=== PATIENT | female | born 1995 | race Caucasian/White ===

== ENCOUNTER 2019-10-21 19:57 | Emergency (ER) | payer MEDICAID ==
--- NOTE | 2019-10-21 21:16 | NUR ---
Per section crews activities clerk, pt LWBS.
== END 2019-10-21 21:16 | disposition left against medical advice (07) ==
LOC: SED 19:57
DX: R06.02 Shortness of breath (principal); Z53.21 Procedure and treatment not carried out due to patient leaving prior to being seen by health care provider

== ENCOUNTER 2023-06-01 15:47 | Emergency (ER) | payer MEDICAID ==
[~2023-06-01] VITALS: Ht 172.7 cm; Wt 83.9 kg
[2023-06-01 15:52] VITALS: BP_SYST 113; PULSE 89; RESP 18; TEMP 98.3; O2SAT 96
[2023-06-01 16:53] LABS: BASOPHILS # (AUTO) 0.1 K/uL (0.0-0.2); BASOPHILS % (AUTO) 0.7 % (0.0-2.0); EOSINOPHILS # (AUTO) 0.1 K/uL (0.0-0.4); EOSINOPHILS % (AUTO) 1.1 % (0.0-4.0); HEMATOCRIT 38.3 % (36-48); HEMOGLOBIN 12.7 g/dL (12.0-16.0); LYMPHOCYTES % (AUTO) 22.5 % (20.5-51.5); MEAN CORPUSCULAR HEMOGLOBIN 29 pg (27-31); MEAN CORPUSCULAR HGB CONC 33 % (32-36); MEAN CORPUSCULAR VOLUME 89 fL (79.0-98.0); MONOCYTES # (AUTO) 0.7 K/uL (0.0-1.0); MONOCYTES % (AUTO) 7.6 % (1.7-9.3); NEUTROPHILS # (AUTO) 5.9 K/uL (1.8-7.7); NEUTROPHILS % (AUTO) 68.1 % (40.0-70.0); PLATELET COUNT (AUTO) 348 K/uL (130-430); RED CELL DISTRIBUTION WIDTH 13.1 % (9.0-15.0); WHITE BLOOD COUNT (AUTO) 8.7 K/uL (4.8-10.8)
[2023-06-01 19:27] VITALS: BP_SYST 113; PULSE 89; RESP 18; TEMP 98.3; O2SAT 96
== END 2023-06-01 19:27 | disposition home or self-care (01) ==
LOC: SED 15:47
DX: O20.0 Threatened abortion (principal); Z3A.08 8 weeks gestation of pregnancy; Z79.899 Other long term (current) drug therapy
CPT/HCPCS: 36415; 76801; 76817; 81025; 84702; 85025; 86900; 86901; 99284

== ENCOUNTER 2023-06-29 01:04 | Emergency (ER) | payer MEDICAID ==
[~2023-06-29] VITALS: Ht 172.7 cm; Wt 82.6 kg
[2023-06-29 01:10] VITALS: BP_SYST 113; PULSE 77; RESP 20; TEMP 98.2; O2SAT 98
--- NOTE | 2023-06-29 01:10 | NUR ---
Patient triaged and placed in waiting room. VSS and patient appears in no acute distress at this time. Accompanied by SELF, awaiting available bed, and MD notified of need for MSE.
--- NOTE | 2023-06-29 01:50 | NUR ---
Patient ambulated to room 7 & connected to CM.
--- NOTE | 2023-06-29 01:58 | NUR ---
Supervisor Housecleaner at bedside. Blood obtained and specimens sent to lab.
--- NOTE | 2023-06-29 02:00 | NUR ---
Patient to ER bed 07 to gown for evaluation. Side rails up. Report given to DERRICK MELGAR.
[2023-06-29 02:04] LABS: BASOPHILS % (AUTO) 0.5 % (0.0-2.0); EOSINOPHILS # (AUTO) 0.1 K/uL (0.0-0.4); EOSINOPHILS % (AUTO) 1.1 % (0.0-4.0); HEMATOCRIT 37.3 % (36-48); HEMOGLOBIN 12.5 g/dL (12.0-16.0); LYMPHOCYTES # (AUTO) 2.3 K/uL (1.0-5.5); LYMPHOCYTES % (AUTO) 25.4 % (20.5-51.5); MEAN CORPUSCULAR HEMOGLOBIN 30 pg (27-31); MEAN CORPUSCULAR HGB CONC 34 % (32-36); MEAN CORPUSCULAR VOLUME 89 fL (79.0-98.0); MONOCYTES # (AUTO) 0.6 K/uL (0.0-1.0); MONOCYTES % (AUTO) 6.8 % (1.7-9.3); NEUTROPHILS % (AUTO) 66.2 % (40.0-70.0); PLATELET COUNT (AUTO) 359 K/uL (130-430); RED BLOOD CELL COUNT(AUTO) 4.19 MIL/uL (4.2-6.2); RED CELL DISTRIBUTION WIDTH 13.9 % (9.0-15.0)
--- NOTE | 2023-06-29 02:10 | NUR ---
Dr. Nye at bedside for evaluation.
[2023-06-29 02:25] LABS: ALBUMIN 3.5 g/dL (3.4-4.8); CALCIUM 8.4 mg/dL (8.4-11.0); CREATININE 0.59 mg/dL (0.55-1.30); TOTAL BILIRUBIN 0.6 mg/dL (0.0-1.0)
[2023-06-29 02:26] LABS: BILIRUBIN,URINE NEGATIVE (NEGATIVE); BLOOD, URINE NEGATIVE (NEGATIVE); CLARITY/URINE CLEAR (CLEAR); COLOR,URINE YELLOW (YELLOW); GLUCOSE,URINE NEGATIVE (NEGATIVE); KETONES,URINE NEGATIVE (NEGATIVE); LEUKOCYTE ESTERASE ,URINE NEGATIVE (NEGATIVE); NITRITE, URINE NEGATIVE (NEGATIVE); PROTEIN URINE NEGATIVE (NEGATIVE); UROBILINOGEN,URINE 0.2 (0.2-1.0)
--- NOTE | 2023-06-29 03:05 | NUR ---
Patient to US via ambulation accompanied US Tech.
--- NOTE | 2023-06-29 03:41 | NUR ---
Patient return to room 7 from US.
--- NOTE | 2023-06-29 04:10 | NUR ---
Dr. Nye at bedside discussing labs, diagnostics and Tx plan. MD will discharge patient home.
[2023-06-29 04:31] VITALS: BP_SYST 117; PULSE 75; RESP 18; TEMP 98; O2SAT 98
--- NOTE | 2023-06-29 04:31 | NUR ---
DCI given to patient. Patient acknowledges & understand DCI. Patient ambulated OTD in stable condition.
== END 2023-06-29 04:31 | disposition home or self-care (01) ==
LOC: SED 01:04
DX: R10.2 Pelvic and perineal pain (principal); Z79.899 Other long term (current) drug therapy
CPT/HCPCS: 36415; 76856-TC; 80053; 81003; 83690; 84702; 85025; 99284